=== PATIENT | male | born 2000 | race Caucasian/White ===

== ENCOUNTER 2023-02-21 08:57 | Day surgery (SDC) | payer BC, OTHER ==
[~2023-02-21] VITALS: Ht 185.4 cm; Wt 87.7 kg
[2023-02-21] VITALS (8 sets, daily range): BP systolic 122–150; BP diastolic 55–83; PULSE 64–73; RESP 14–16; TEMP 98.5; O2SAT 98–99
[2023-02-21] MEDS ORDERED: LIDOcaine 1% 30ml preserv. free vial ONE (09:21)
[2023-02-21] MEDS ORDERED: NO HOME MEDS (09:38)
--- NOTE | 2023-02-21 12:00 | NUR ---
Patient and mother both verbalize understanding of DC instructions. Pt denies headache or discomfort, no neuro deficits noted. Pt tolerating PO and voiding without difficulties.
[2023-02-21 12:40] LABS: APPEARANCE,CSF CLEAR; CSF SUPERNATANT COLOR COLORLESS; CSF VOLUME 15 ML
[2023-02-21 12:41] LABS: CSF RBC 3 /CU MM (0); CSF WBC CT 2 /CU MM (0-5); TUBE# COUNTED 3
[2023-02-21 13:02] LABS: GLUCOSE,CSF 60 MG/DL (40-75); TOTAL PROTEIN,CSF 46 MG/DL (15-45)
== END 2023-02-21 12:00 | disposition home or self-care (01) ==
LOC: SSTAY O 08:57
PROVIDERS: ATTEND Psychiatry & Neurology Neurology
DX: H46.03 Optic papillitis, bilateral (principal); H53.001 Unspecified amblyopia, right eye; G43.109 Migraine with aura, not intractable, without status migrainosus; Z98.890 Other specified postprocedural states
CPT/HCPCS: 36415; 62328; 82040; 82042; 82164; 82784; 82945; 83916; 84157; 86617; 87015; 87070; 89051; J3490; A4620